=== PATIENT | male | born 2000 | race Two or more races ===

== ENCOUNTER → 2025-04-04 | Emergency (ER) | payer OTHER ==
[~2025-04-04] VITALS: Ht 185.4 cm; Wt 77.1 kg
[~2025-04-04] MED LIST: CEFTRIAXONE SODIUM 1,000 MG VIAL IM ONE; CEFTRIAXONE SODIUM 1,000 MG VIAL ONE; KETOROLAC TROMETHAMINE 60 MG VIAL IM ONE
== END | disposition home or self-care (01) ==
LOC: ER 07:20
DX: N49.2 Inflammatory disorders of scrotum (principal)